=== PATIENT | male | born 1950 | race Caucasian/White ===

== ENCOUNTER 2021-08-06 19:56 | Emergency (ER) | payer MEDICARE ==
[2021-08-06 20:14] LABS: BASOPHIL 0.5 % (0-2); HCT 48.4 % (42.0-52.0); HGB 16.1 g/dl (13.2-18.0); LYMPHOCYTE 22.1 % (15-48); MCH 29.9 pg (25.0-31.0); MCHC 33.3 g/dL (32.0-36.0); MONOCYTE 7.8 % (0-12); MPV 11.5 fL (6.0-9.5); NEUTROPHIL 67.1 % (41-80); NRBC 0; PLT 237 K/uL (150-400); RBC 5.38 M/uL (4.70-6.00); RDW 12.6 % (11.5-14.0); WBC 16.3 K/uL (4.0-10.5)
[2021-08-06 20:34] LABS: ALBUMIN 4.1 g/dL (3.4-5.0); BILIRUBIN - TOTAL 0.3 mg/dL (0.2-1.0); BUN/CREAT RATIO (CALC) 18.1 RATIO; CREATININE 1.05 mg/dL (0.67-1.17); GLOBULIN (CALCULATION) 3.5 g/dL; MAGNESIUM 2.1 mg/dL (1.8-2.4); POTASSIUM 4.6 mmol/L (3.5-5.1); TOTAL PROTEIN 7.6 g/dL (6.4-8.2)
[2021-08-06 21:03] LABS: CORONAVIRUS 2019 SARS-COV-2 NEGATIVE (NEGATIVE); INFLUENZA A NAA NEGATIVE (NEGATIVE)
[2021-08-06 21:37] LABS: BILIRUBIN NEGATIVE (NEGATIVE); BLOOD 3+ Ery/uL (NEGATIVE); COLOR YELLOW (YELLOW); GLUCOSE (U) NORMAL (NORMAL); LEUKOCYTES NEGATIVE Leu/uL (NEGATIVE); NITRITE NEGATIVE (NEGATIVE); PROTEIN 1+ mg/dL (NEGATIVE); SPECIFIC GRAVITY >=1.030 (1.001-1.030); UROBILINOGEN 0.2 mg/dL (0.2-1.0); pH 6.5 (5.0-9.0)
[2021-08-06 21:46] LABS: CLARITY HAZY (CLEAR); URINARY RBC TNTC; URINARY WBC RARE
[2021-08-06 21:47] LABS: BACTERIA TRACE; MUCOUS TRACE; SQUAMOUS EPITHELIAL CELLS RARE
[2021-08-06] MEDS ORDERED: ONDANSETRON ODT4 MG PO (22:30)
[2021-08-06] MEDS ORDERED: FLOMAX0.4 MG PO (22:30)
[2021-08-06] MEDS ORDERED: PERCOCET 5-3251 EACH PO (22:30)
== END 2021-08-06 22:43 | disposition home or self-care (01) ==
LOC: FER 19:56
PROVIDERS: Internal Medicine
DX: N13.2 Hydronephrosis with renal and ureteral calculous obstruction (principal); R07.89 Other chest pain; E78.5 Hyperlipidemia, unspecified; E03.9 Hypothyroidism, unspecified; Z79.890 Hormone replacement therapy; Z79.899 Other long term (current) drug therapy; Z20.822 Contact with and (suspected) exposure to COVID-19
CPT/HCPCS: 36415; 71250; 80053; 81001; 83690; 83735; 84145; 84484; 85025; 93005; J1170; J1885; J2405; J7030; U0002